=== PATIENT | female | born 1955 | race Caucasian/White ===

== ENCOUNTER 2018-03-09 10:36 | Day surgery (SDC) | payer OTHER ==
[2018-03-09 12:05] VITALS: BMI 28.3
--- NOTE | 2018-03-09 12:35 | PROC ---
Endoscopy Procedure Endoscopy procedure completed. Please see scanned procedure report.
[2018-03-09 13:26] VITALS: TEMP 97.5
[2018-03-09 14:53] VITALS: BP 153/73; PULSE 61
--- NOTE | 2018-03-10 14:24 | PATH ---
Surgical Pathology Report Patient Name: KRISTINA MURPHY [facility]. Rec. #: [id number] /Age/Gender: 1955 (Age: 62) / F Account: [id number] Location: U-ENDOSCOPY Taken: 03/09/2018 Received: 03/09/2018 Reported: 03/10/2018 Physicians: Suraj Morgan M.D. Specimen(s) Received A: BX DUODENUM SECOND PORTION B: BX ANTRUM AND BODY C: BX GE JUNCTION D: BX ASCENDING COLON POLYP Clinical History Reflux symptoms, screening colonoscopy Postoperative diagnosis: Reflux, colon polyp, diverticulosis, hemorrhoids Final Diagnosis A. DUODENUM, SECOND PORTION, BIOPSY: DUODENAL MUCOSA WITH NO DIAGNOSTIC ABNORMALITIES. B. ANTRUM AND BODY, BIOPSY: GASTRIC MUCOSA WITH NO DIAGNOSTIC ABNORMALITIES. IMMUNOSTAIN IS NEGATIVE FOR H. PYLORI ORGANISMS. C. GE JUNCTION, BIOPSY: GASTROESOPHAGEAL MUCOSA WITH CHRONIC INFLAMMATION AND FEATURES CONSISTENT WITH REFLUX ESOPHAGITIS. D. ASCENDING COLON POLYP, POLYPECTOMY: TUBULAR ADENOMA. Electronically Signed Natividad Eduardo M.D. Gross Description A. Received in formalin, labeled " biopsy duodenum second portion" are 2 ugalde, irregular portions of soft tissue measuring 0.2 and 0.6 cm. in greatest dimension. The specimens are submitted in toto in one cassette. B. Received in formalin, labeled " biopsy antrum and body" are 4 ugalde, irregular portions of soft tissue ranging from 0.2-0.4 cm. in greatest dimension. The specimens are submitted in toto in one cassette. C. Received in formalin, labeled " biopsy GE junction" are 3 ugalde, irregular portions of soft tissue ranging from 0.2-0.4 cm. in greatest dimension. The specimens are submitted in toto in one cassette. D. Received in formalin, labeled " polyp ascending" are 6 ugalde, irregular portions of soft tissue ranging from 0.1-0.4 cm. in greatest dimension. The specimens are submitted in toto in one cassette. 03/09/2018 [place]udi03/09/2018
== END 2018-03-09 14:35 | disposition home or self-care (01) ==
LOC: JASU-ENDO 10:36
PROVIDERS: ATTEND Internal Medicine Gastroenterology
PROC: 0DB68ZX Excision of Stomach, Via Natural or Artificial Opening Endoscopic, Diagnostic (ICD-10-PCS; 2018-03-09)
PROC: 0DB58ZX Excision of Esophagus, Via Natural or Artificial Opening Endoscopic, Diagnostic (ICD-10-PCS; 2018-03-09)
PROC: 0DBK8ZX Excision of Ascending Colon, Via Natural or Artificial Opening Endoscopic, Diagnostic (ICD-10-PCS; 2018-03-09)
PROC: 3E0H8GC Introduction of Other Therapeutic Substance into Lower GI, Via Natural or Artificial Opening Endoscopic (ICD-10-PCS; 2018-03-09)
PROC: 0DB98ZX Excision of Duodenum, Via Natural or Artificial Opening Endoscopic, Diagnostic (ICD-10-PCS; principal; 2018-03-09 12:00)
DX: Z12.11 Encounter for screening for malignant neoplasm of colon (principal); D12.2 Benign neoplasm of ascending colon; K21.0 Gastro-esophageal reflux disease with esophagitis; K57.30 Diverticulosis of large intestine without perforation or abscess without bleeding; K64.8 Other hemorrhoids
CPT/HCPCS: 88305-TC; 88342-TC

== ENCOUNTER → 2019-05-29 | Day surgery (SDC) | payer OTHER ==
--- NOTE | 2019-05-31 17:14 | PATH ---
Surgical Pathology Report Patient Name: KRISTINA MURPHY [facility]. Rec. #: [id number] /Age/Gender: 1955 (Age: 64) / F Account: [id number] Location: Taken: 05/29/2019 Received: 05/30/2019 Reported: 05/31/2019 Physicians: Nithya Jaramillo M.D. Specimen(s) Received RIGHT BREAST CORE BIOPSY Clinical History Nonpalpable lesion Ultrasound findings: Probably benign Final Diagnosis RIGHT BREAST MASS, 5:00, ULTRASOUND GUIDED CORE BIOPSY: BREAST TISSUE WITH FIBROADENOMA. Electronically Signed Natividad Eduardo M.D. Gross Description Received in formalin labeled "right breast," are 3 ugalde-yellow, cylindrical portions of fibroadipose tissue ranging from 0.2-0.7 cm in length and averaging 0.1 cm in diameter. The specimens are submitted in toto in one cassette. Time to formalin fixation: Less than one minute Total formalin fixation time: Approximately 29 hours. 05/30/2019 [facility]05/30/2019
== END | disposition home or self-care (01) ==
LOC: JMAMMO-SUR 12:02
PROVIDERS: ATTEND Family Medicine
PROC: 0HBT3ZX Excision of Right Breast, Percutaneous Approach, Diagnostic (ICD-10-PCS; principal; 2019-05-29)
DX: D24.1 Benign neoplasm of right breast (principal)
CPT/HCPCS: 19083; 87899; 88305-TC; A4648

== ENCOUNTER 2019-11-13 16:31 | Inpatient (IN) | payer OTHER ==
--- NOTE | 2019-11-13 16:47 | PDOC ---
Rapid Medical Evaluation Time Seen by Provider: 11/13/19 16:46 Medical Evaluation: Allergies Allergy/AdvReac Type Severity Reaction Status Date / Time No Known Allergies Allergy Verified 11/13/19 16:46 11/13/19 16:46 I performed a brief in-person evaluation of this patient. 64-year-old female with vomiting, dizziness, abdominal pain, high BP and BG recorded at home. Pertinent physical exam findings: Actively vomiting in triage. I have ordered the following: Labs including CBC, CMP, VBG, BHB, cardiac profile, UA Normal saline for hydration Zofran for nausea Patient to proceed to the ED for further evaluation. Discharge Disposition - Diagnosis Vomiting - Referrals - Patient Instructions - Post Discharge Activity
[2019-11-13] MEDS ORDERED: ONDANSETRON 4 MG/2 ML VIAL IVPUSH ONE (16:50)
[2019-11-13] MEDS ORDERED: SODIUM CHLORIDE 1,000 ML IV STA ×2 (16:50→18:58)
[2019-11-13] MEDS ORDERED: ONDANSETRON 4 MG/2 ML VIAL ONE (17:19)
--- NOTE | 2019-11-13 18:05 | PDOC ---
History of Present Illness - General Chief Complaint: Blood Pressure Problem Stated Complaint: VOMITTING/CHEST PAIN/HIGH B/P Time Seen by Provider: 11/13/19 16:46 History Source: Patient Exam Limitations: No Limitations - History of Present Illness Initial Comments: 11/13/19 18:18 64 yo F with a hx of HTN, DM, and vertigo (last time symptom onset 2 years ago; not on medication) presents to the emergency department with room spinning sensation, high blood pressure, vomiting, and elevated BG. Per the patient, her symptoms onset was sudden at approximately 3 pm while at rest with room spinning sensation to the right. She endorses having nausea and vomiting 2-3x without blood and bile since then. Per the patient, she states she had her BG at approximately 300 and her BP systolic shy of 200. Denies the following: fevers, headaches, visual disturbance, ears/nose/throat pain, chest pain, SOB, abdominal pain, dysuria, hematuria, diarrhea, hematochezia, melena, and leg pain /swelling. Allergies: NKDA Past History - Past Medical History Allergies/Adverse Reactions: Allergies Allergy/AdvReac Type Severity Reaction Status Date / Time No Known Allergies Allergy Verified 11/13/19 16:46 Home Medications: Ambulatory Orders Insulin (Novolog) [Novolog -] 10 units SQ DAILY 03/09/18 Insulin Glargine,Hum.rec.anlog [Lantus] 24 units SQ HS 03/09/18 Losartan Potassium 125 mg PO DAILY 03/09/18 Meclizine HCl 25 mg PO DAILY 03/09/18 Pantoprazole Sodium [Protonix] 40 mg PO DAILY #1 tablet. 03/09/18 metFORMIN HCL [Metformin ER Osmotic] 1,000 mg PO BID 03/09/18 COPD: No Diabetes: Yes (IDDM) HTN: Yes - Surgical History Abdominal Surgery: (TUBAL LIGATION) - Psycho Social/Smoking Cessation Hx Smoking Status: No Smoking History: Never smoked Number of Cigarettes Smoked Daily: 0 Hx Alcohol Use: No Drug/Substance Use Hx: No Substance Use Type: None Hx Substance Use Treatment: No Review of Systems - Review of Systems Able to Perform ROS?: Yes Is the patient limited Thai proficient: No Constitutional: No: Chills, Diaphoresis, Fever, Weakness HEENTM: No: Eye Pain, Ear Pain, Nose Pain, Throat Pain, Mouth Pain Respiratory: No: Cough, Shortness of Breath, Hemoptysis Cardiac (ROS): No: Chest Pain, Lightheadedness, Palpitations ABD/GI: Yes: Nausea, Vomiting. No: Constipated, Diarrhea, Rectal Bleeding, Tarry Stools : No: Burning, Dysuria, Hematuria, Incontinence Musculoskeletal: No: Back Pain, Neck Pain Integumentary: No: Bruising, Flushing, Rash Neurological: Yes: Dizziness. No: Headache, Numbness, Tingling, Tremors Psychiatric: No: Change in Appetite Endocrine: No: Unexplained Weight Gain Hematologic/Lymphatic: No: Anemia *Physical Exam - Vital Signs Last Vital Signs Temp Pulse Resp BP Pulse Ox 97.9 F 92 H 18 177/84 H 100 11/13/19 16:46 11/13/19 16:46 11/13/19 16:46 11/13/19 16:46 11/13/19 16:46 - Physical Exam General Appearance: Yes: Nourished, Appropriately Dressed. No: Apparent Distress, Intoxicated, Obese HEENT: positive: EOMI, SERG, Normal ENT Inspection, Normal Voice, Symmetrical, TMs Normal, Pharynx Normal, Hearing Grossly Normal. negative: Pale Conjunctivae , Scleral Icterus (R), Scleral Icterus (L), Muffled/Hoarse voice, Pharyngeal Erythema, Tonsillar Exudate, Tonsillar Erythema, Rhinorrhea, Sinus Tenderness, Excessive drooling Neck: positive: Trachea midline, Supple. negative: Tender, Lymphadenopathy (R) , Lymphadenopathy (L), Tender lateral, Tender midline Respiratory/Chest: positive: Lungs Clear, Normal Breath Sounds. negative: Chest Tender, Respiratory Distress, Accessory Muscle Use, Rales, Rhonchi, Stridor Cardiovascular: positive: Regular Rhythm, Regular Rate, S1, S2. negative: Systolic Murmur Gastrointestinal/Abdominal: positive: Normal Bowel Sounds, Flat, Soft. negative : Tender, Distended, Guarding, Rebound Lymphatic: negative: Adenopathy Musculoskeletal: positive: Normal Inspection. negative: CVA Tenderness, Vertebral Tenderness Extremity: positive: Normal Capillary Refill, Normal Inspection, Normal Range of Motion. negative: Tender, Swelling, Calf Tenderness, Erythema Integumentary: positive: Normal Color, Dry, Warm. negative: Petechiae, Rash, Swelling, Ecchymosis Neurologic: positive: orthopedic surgeon II-XII NML intact, Fully Oriented, Alert, Normal Mood/ Affect, Motor Strength 5/5. negative: EOM Palsy ED Treatment Course - LABORATORY CBC & Chemistry Diagram: 11/13/19 17:28 11/13/19 17:28 - ADDITIONAL ORDERS Additional order review: Laboratory Results 11/13/19 17:40 POC Glucometer 230 11/13/19 17:40 POC Glucometer 230 - Medications Given in the ED: ED Medications Discontinued Medications Generic Name Dose Route Start Last Admin Trade Name Jim PRN Reason Stop Dose Admin Sodium Chloride 1,000 mls @ 1,000 mls/hr 11/13/19 16:50 11/13/19 17:37 Normal Saline - IV 11/13/19 17:49 1,000 mls/hr ASDIR STA Administration Ondansetron HCl 4 mg 11/13/19 16:50 11/13/19 17:37 Zofran Injection IVPUSH 11/13/19 16:51 4 mg ONCE ONE Administration Medical Decision Making - Medical Decision Making 11/13/19 18:54 64 yo F with a hx of HTN, DM, and vertigo (last time symptom onset 2 years ago; not on medication) presents to the emergency department with room spinning sensation, high blood pressure, vomiting, and elevated BG. Initial vitals: Initial Vital Signs Temp Pulse Resp BP Pulse Ox 97.9 F 92 H 18 177/84 H 100 11/13/19 16:46 11/13/19 16:46 11/13/19 16:46 11/13/19 16:46 11/13/19 16:46 Work up: patient presents to the emergency department with room spinning sensation Negative HINTS exam. positive trey halpike to the right on physical examination patient likely is having peripheral positional benign vertigo - will treat with meclizine and reassess Laboratory Tests 11/13/19 11/13/19 11/13/19 17:28 17:28 17:28 WBC 8.9 RBC 4.64 Hgb 12.4 Hct 38.2 MCV 82.2 MCH 26.8 MCHC 32.5 RDW 14.1 Plt Count 349 D MPV 8.4 Absolute Neuts (auto) 5.8 Neutrophils % 65.4 D Lymphocytes % 25.9 D Monocytes % 6.9 Eosinophils % 1.3 D Basophils % 0.5 Nucleated RBC % 0 VBG pH 7.39 POC VBG pCO2 53.1 H POC VBG pO2 < 49 H VBG HCO3 32.0 H VBG O2 Sat (Camila) 54.2 L VBG Base Excess 6.2 H Sodium 135 L Potassium 4.1 Chloride 99 Carbon Dioxide 30 Anion Gap 7 L BUN 15.7 Creatinine 0.7 Est GFR (CKD-EPI)AfAm 106.12 Est GFR (CKD-EPI)NonAf 91.56 POC Glucometer Random Glucose 227 H Calcium 10.0 Total Bilirubin 0.3 AST 18 ALT 35 Alkaline Phosphatase 81 Creatine Kinase Troponin I Total Protein 7.6 Albumin 3.9 Beta-Hydroxybutyrate 1.3 Urine Color Urine Appearance Urine pH Ur Specific [place] Urine Protein Urine Glucose (UA) Urine Ketones Urine Blood Urine Nitrite Urine Bilirubin Urine Urobilinogen Ur Leukocyte Esterase Urine WBC (Auto) Urine RBC (Auto) Urine Casts (Auto) U Epithel Cells (Auto) Urine Bacteria (Auto) 11/13/19 11/13/19 11/13/19 17:28 17:40 18:35 WBC RBC Hgb Hct MCV MCH MCHC RDW Plt Count MPV Absolute Neuts (auto) Neutrophils % Lymphocytes % Monocytes % Eosinophils % Basophils % Nucleated RBC % VBG pH POC VBG pCO2 POC VBG pO2 VBG HCO3 VBG O2 Sat (Camila) VBG Base Excess Sodium Potassium Chloride Carbon Dioxide Anion Gap BUN Creatinine Est GFR (CKD-EPI)AfAm Est GFR (CKD-EPI)NonAf POC Glucometer 230 Random Glucose Calcium Total Bilirubin AST ALT Alkaline Phosphatase Creatine Kinase 30 Troponin I < 0.02 Total Protein Albumin Beta-Hydroxybutyrate Urine Color Yellow Urine Appearance Clear Urine pH 7.0 D Ur Specific [place] 1.023 Urine Protein 2+ H Urine Glucose (UA) 2+ H Urine Ketones Negative Urine Blood Negative Urine Nitrite Positive H Urine Bilirubin Negative Urine Urobilinogen 0.2 Ur Leukocyte Esterase Negative Urine WBC (Auto) 10.4 Urine RBC (Auto) 2 Urine Casts (Auto) 5 U Epithel Cells (Auto) 2.3 Urine Bacteria (Auto) 1045.0 patient was found to have UTI and treated with abx. Will sign out patient to Dr. Arita for further work up and management. 11/13/19 23:35 Discharge - Discharge Information Problems reviewed: Yes Clinical Impression/Diagnosis: Dizziness Vomiting Qualifiers: Vomiting type: unspecified Vomiting Intractability: non-intractable Nausea presence: with nausea Qualified Code(s): R11.2 - Nausea with vomiting, unspecified Condition: Stable - Follow up/Referral - Patient Discharge Instructions - Post Discharge Activity
[2019-11-13] MEDS ORDERED: MECLIZINE HCL 25 MG TABLET (FP) PO ONE ×2 (18:15→18:59)
--- NOTE | 2019-11-13 18:17 | PDOC ---
Attending Attestation - Resident Resident Name: Miguel Red - ED Attending Attestation I have performed the following: I have examined & evaluated the patient, The case was reviewed & discussed with the resident, I agree w/resident's findings & plan, Exceptions are as noted - HPI HPI: 64 yo F history HTN, DM, vertigo presents with dizziness, sensation of room spinning, vomiting. She has had similar symptoms in the past, responded to meclizine. No recent URI, ear infections, fever, headache. Denies weakness, numbness. Symptoms are worse with side to side movements of her head. - Physicial Exam PE: GENERAL: Awake, alert, and fully oriented, in no acute distress. Covering eyes secondary to symptoms HEAD: No signs of trauma EYES: PERRLA, EOMI, sclera anicteric, conjunctiva clear ENT: Auricles normal inspection, hearing grossly normal, nares patent, oropharynx clear without exudates. Dry mucosa NECK: Normal ROM, supple, no lymphadenopathy, JVD, or masses LUNGS: Breath sounds equal, clear to auscultation bilaterally. No wheezes, and no crackles HEART: Regular rate and rhythm, normal S1 and S2, no murmurs, rubs or gallops ABDOMEN: Soft, nontender, normoactive bowel sounds. No guarding, no rebound. No masses EXTREMITIES: Normal range of motion, no edema. No clubbing or cyanosis. No cords, erythema, or tenderness NEUROLOGICAL: Cranial nerves II through XII grossly intact. Normal speech. Motor and sensation intact. Gait not tested due to severe dizziness SKIN: Warm, dry, normal turgor, no rashes or lesions noted. - Medical Decision Making Pt with prior history of vertigo, now presents with vertiginous symptoms. Given zofran for vomiting. Will give meclizine, and if this fails, consider valium. Will DC home if she improves.
[2019-11-13] MEDS ORDERED: MECLIZINE HCL 25 MG TABLET (FP) ONE ×2 (18:25→19:51)
[2019-11-13 18:42] LABS: BASO % 0.5 % (0-2.0); EOS % 1.3 % (0-4.5); HEMATOCRIT 38.2 % (32.4-45.2); HEMOGLOBIN 12.4 GM/dL (10.7-15.3); LYMPH % 25.9 % (8-40); MCH 26.8 pg (25.7-33.7); MCHC 32.5 g/dl (32.0-36.0); MEAN CELL VOLUME 82.2 fl (80-96); MEAN PLT VOLUME 8.4 fl (7.5-11.1); MONO % 6.9 % (3.8-10.2); NEUT % 65.4 % (42.8-82.8); PLATELET COUNT 349 K/MM3 (134-434); RBC 4.64 M/mm3 (3.60-5.2); RDW 14.1 % (11.6-15.6); WHITE BLOOD COUNT 8.9 K/mm3 (4.0-10.0)
[2019-11-13 18:47] LABS: EPI CELLS 2.3 /HPF (0-5/HPF); HYALINE CASTS 5 /lpf (0-8); URINE APPEARANCE CLEAR; URINE BILIRUBIN NEGATIVE (NEGATIVE); URINE COLOR YELLOW; URINE GLUCOSE (UA) 2+ (NEGATIVE); URINE KETONE NEGATIVE (NEGATIVE); URINE LEUK ESTERASE NEGATIVE (NEGATIVE); URINE NITRITE POSITIVE (NEGATIVE); URINE PROTEIN 2+ (NEGATIVE); URINE RBC 2 /hpf (0-4); URINE UROBILINOGEN 0.2 mg/dL (0.2-1.0)
[2019-11-13 18:49] LABS: VENOUS PC02 53.1 mmHg (38-52); VENOUS PH 7.39 (7.31-7.41)
[2019-11-13 18:50] LABS: VENOUS PO2 < 49 mmHg (28-48)
[2019-11-13] MEDS ORDERED: CEPHALEXIN MONOHYDRATE 500 MG CAPSULE (UD) PO ONE (18:58)
[2019-11-13 19:11] LABS: ALBUMIN 3.9 g/dl (3.4-5.0); BILIRUBIN,TOTAL 0.3 mg/dL (0.2-1); BLOOD UREA NITROGEN 15.7 mg/dL (7-18); CREATININE 0.7 mg/dL (0.55-1.3); POTASSIUM 4.1 mmol/L (3.5-5.1); TOT PROT 7.6 g/dl (6.4-8.2)
--- NOTE | 2019-11-13 19:31 | PDOC ---
*Physical Exam - Vital Signs Last Vital Signs Temp Pulse Resp BP Pulse Ox 97.9 F 92 H 18 177/84 H 100 11/13/19 16:46 11/13/19 16:46 11/13/19 16:46 11/13/19 16:46 11/13/19 16:46 - Physical Exam MDM: Received sign out from resident Dr. Red. In short, pt is a 62 y/o female presenting with a sensation of room spinning. H/o of peripheral vertigo. Horizontal nystagmus and a positive Abdullahi Hallpike were noted on exam. Given a dose of Meclizine without improvement. Received a second dose just prior to sign out. Will follow up on symptoms. Also UA concerning for acute cystitis. Keflex ordered. Dispo pending. 13 Nov 2019 20:56 PM Pt reassessed. Reports feeling a little better but objectives in the room continue to move. Transitioned from supine to sitting position and symptoms acutely worsened. Will admit for persistent vertiginous symptoms. Unable to ambulate. 13 Nov 2019 22:19 PM Telephone discussion with NASRIN Blank. Verbally appraised of the pts HPI, ED course, and current plan of management. Will admit pt to med /surg for attending Dr. Bauman. CTH pending. ED Treatment Course - LABORATORY CBC & Chemistry Diagram: 11/13/19 17:28 11/13/19 17:28 - ADDITIONAL ORDERS Additional order review: Laboratory Results 11/13/19 11/13/19 11/13/19 18:35 17:40 17:28 VBG pH POC VBG pCO2 POC VBG pO2 VBG HCO3 VBG O2 Sat (Camila) VBG Base Excess Sodium Potassium Chloride Carbon Dioxide Anion Gap BUN Creatinine Est GFR (CKD-EPI)AfAm Est GFR (CKD-EPI)NonAf POC Glucometer 230 Random Glucose Calcium Total Bilirubin AST ALT Alkaline Phosphatase Creatine Kinase 30 Troponin I < 0.02 Total Protein Albumin Beta-Hydroxybutyrate Urine Color Yellow Urine Appearance Clear Urine pH 7.0 D Ur Specific [place] 1.023 Urine Protein 2+ H Urine Glucose (UA) 2+ H Urine Ketones Negative Urine Blood Negative Urine Nitrite Positive H Urine Bilirubin Negative Urine Urobilinogen 0.2 Ur Leukocyte Esterase Negative Urine RBC (Auto) 2 Urine Casts (Auto) 5 U Epithel Cells (Auto) 2.3 Urine Bacteria (Auto) 1045.0 11/13/19 11/13/19 17:28 17:28 VBG pH 7.39 POC VBG pCO2 53.1 H POC VBG pO2 < 49 H VBG HCO3 32.0 H VBG O2 Sat (Camila) 54.2 L VBG Base Excess 6.2 H Sodium 135 L Potassium 4.1 Chloride 99 Carbon Dioxide 30 Anion Gap 7 L BUN 15.7 Creatinine 0.7 Est GFR (CKD-EPI)AfAm 106.12 Est GFR (CKD-EPI)NonAf 91.56 POC Glucometer Random Glucose 227 H Calcium 10.0 Total Bilirubin 0.3 AST 18 ALT 35 Alkaline Phosphatase 81 Creatine Kinase Troponin I Total Protein 7.6 Albumin 3.9 Beta-Hydroxybutyrate 1.3 Urine Color Urine Appearance Urine pH Ur Specific [place] Urine Protein Urine Glucose (UA) Urine Ketones Urine Blood Urine Nitrite Urine Bilirubin Urine Urobilinogen Ur Leukocyte Esterase Urine RBC (Auto) Urine Casts (Auto) U Epithel Cells (Auto) Urine Bacteria (Auto) 11/13/19 11/13/19 17:40 17:28 RBC 4.64 MCV 82.2 MCHC 32.5 RDW 14.1 MPV 8.4 Neutrophils % 65.4 D Lymphocytes % 25.9 D Monocytes % 6.9 Eosinophils % 1.3 D Basophils % 0.5 POC Glucometer 230 - Medications Given in the ED: ED Medications Discontinued Medications Generic Name Dose Route Start Last Admin Trade Name Freq PRN Reason Stop Dose Admin Sodium Chloride 1,000 mls @ 1,000 mls/hr 11/13/19 16:50 11/13/19 17:37 Normal Saline - IV 11/13/19 17:49 1,000 mls/hr ASDIR STA Administration Meclizine HCl 25 mg 11/13/19 18:15 11/13/19 18:26 Antivert - PO 11/13/19 18:16 25 mg ONCE ONE Administration Ondansetron HCl 4 mg 11/13/19 16:50 11/13/19 17:37 Zofran Injection IVPUSH 11/13/19 16:51 4 mg ONCE ONE Administration Discharge - Discharge Information Problems reviewed: Yes Clinical Impression/Diagnosis: Dizziness Vomiting Qualifiers: Vomiting type: unspecified Vomiting Intractability: non-intractable Nausea presence: with nausea Qualified Code(s): R11.2 - Nausea with vomiting, unspecified Condition: Stable - Admission Yes - Follow up/Referral Referrals: Senait Bowie MD [Primary Care Provider] - - Patient Discharge Instructions - Post Discharge Activity
[2019-11-13] MEDS ORDERED: CEPHALEXIN MONOHYDRATE 500 MG CAPSULE (UD) ONE (19:51)
[2019-11-13 22:04] LABS: URINE WBC 10.4 /hpf (0-5)
--- NOTE | 2019-11-13 23:12 | HP ---
Admitting History and Physical - Primary Care Physician PCP: Senait Bowie - Admission Chief Complaint: Dizziness, Elevated blood pressure, elevated glucose readings, vomiting History of Present Illness: This is a 64 y/o woman with a PMHx of HTN, DM, Vertigo (last time symptom onset 2 years ago; not on medication). Who presents to the ED with dizziness, vomiting , elevated BP and BGM. patient is kosovan speaking, her daughter translated at bedside. Patient reports that her symptoms started in the afternoon yesterday, while at rest with room spinning sensation to the right. She reports NBNB vomiting and nausea. Patient reports that her glucose was approximately 300 and her BP systolic was 200. Patient denies fever, headaches, visual disturbance, chest pain, SOB, abdominal pain, dysuria, hematuria, diarrhea, hematochezia, melena, and leg pain/swelling. History Source: Patient, Family Member Limitations to Obtaining History: Language Barrier (Syriac) - Past Medical History HATCH [employer]PER[employer]OR: Yes: Vertigo Cardiovascular: Yes: HTN Endocrine: Yes: Diabetes Mellitus - Smoking History Smoking history: Never smoked Aproximately how many cigarettes per day: 0 - Alcohol/Substance Use Hx Alcohol Use: No - Social History Usual Living Arrangement: Yes: With Child ADL: Independent History of Recent Travel: No Home Medications - Allergies Allergies/Adverse Reactions: Allergies Allergy/AdvReac Type Severity Reaction Status Date / Time No Known Allergies Allergy Verified 11/13/19 16:46 - Home Medications Home Medications: Ambulatory Orders Insulin (Novolog) [Novolog -] 10 units SQ DAILY 03/09/18 Insulin Glargine,Hum.rec.anlog [Lantus] 24 units SQ HS 03/09/18 Losartan Potassium 125 mg PO DAILY 03/09/18 Meclizine HCl 25 mg PO DAILY 03/09/18 Pantoprazole Sodium [Protonix] 40 mg PO DAILY #1 tablet. 03/09/18 metFORMIN HCL [Metformin ER Osmotic] 1,000 mg PO BID 03/09/18 Family Medical History Family History: Unable to Obtain Review of Systems - Review of Systems Constitutional: reports: Malaise Eyes: reports: No Symptoms HENT: reports: No Symptoms Neck: reports: No Symptoms Cardiovascular: reports: No Symptoms Respiratory: reports: No Symptoms Gastrointestinal: reports: Nausea, Vomiting Genitourinary: reports: No Symptoms Breasts: reports: No Symptoms Reported Musculoskeletal: reports: No Symptoms Integumentary: reports: No Symptoms Neurological: reports: Dizziness Endocrine: reports: No Symptoms Hematology/Lymphatic: reports: No Symptoms Psychiatric: reports: No Symptoms Pain Intensity: 0 Physical Examination Vital Signs: Vital Signs Temperature 97.9 F 11/13/19 16:46 Pulse Rate 92 H 11/13/19 16:46 Respiratory Rate 18 11/13/19 16:46 Blood Pressure 177/84 H 11/13/19 16:46 O2 Sat by Pulse Oximetry (%) 100 11/13/19 16:46 Constitutional: Yes: Well Nourished, No Distress, Calm Eyes: Yes: Conjunctiva Clear, PERRL HENT: Yes: Atraumatic, Normocephalic, Other (dry mucous membranes) Neck: Yes: WNL, Supple, Trachea Midline Cardiovascular: Yes: WNL, Regular Rate and Rhythm, S1, S2 Respiratory: Yes: WNL, Regular, CTA Bilaterally Gastrointestinal: Yes: WNL, Normal Bowel Sounds, Soft ...Rectal Exam: Yes: Deferred Renal/: Yes: WNL Breast(s): Yes: WNL Musculoskeletal: Yes: WNL Extremities: Yes: WNL Edema: No Peripheral Pulses WNL: Yes Neurological: Yes: WNL, Alert, Oriented, Cran Nerves II-XII Intact ...Motor Strength: WNL Psychiatric: Yes: WNL, Alert, Oriented Labs: CBC, BMP 11/13/19 17:28 11/13/19 17:28 Laboratory Results - last 24 hr 11/13/19 11/13/19 11/13/19 17:28 17:28 17:28 WBC 8.9 RBC 4.64 Hgb 12.4 Hct 38.2 MCV 82.2 MCH 26.8 MCHC 32.5 RDW 14.1 Plt Count 349 D MPV 8.4 Absolute Neuts (auto) 5.8 Neutrophils % 65.4 D Lymphocytes % 25.9 D Monocytes % 6.9 Eosinophils % 1.3 D Basophils % 0.5 Nucleated RBC % 0 VBG pH 7.39 POC VBG pCO2 53.1 H POC VBG pO2 < 49 H VBG HCO3 32.0 H VBG O2 Sat (Camila) 54.2 L VBG Base Excess 6.2 H Sodium 135 L Potassium 4.1 Chloride 99 Carbon Dioxide 30 Anion Gap 7 L BUN 15.7 Creatinine 0.7 Est GFR (CKD-EPI)AfAm 106.12 Est GFR (CKD-EPI)NonAf 91.56 POC Glucometer Random Glucose 227 H Calcium 10.0 Total Bilirubin 0.3 AST 18 ALT 35 Alkaline Phosphatase 81 Creatine Kinase Troponin I Total Protein 7.6 Albumin 3.9 Beta-Hydroxybutyrate 1.3 Urine Color Urine Appearance Urine pH Ur Specific [place] Urine Protein Urine Glucose (UA) Urine Ketones Urine Blood Urine Nitrite Urine Bilirubin Urine Urobilinogen Ur Leukocyte Esterase Urine WBC (Auto) Urine RBC (Auto) Urine Casts (Auto) U Epithel Cells (Auto) Urine Bacteria (Auto) 11/13/19 11/13/19 11/13/19 17:28 17:40 18:35 WBC RBC Hgb Hct MCV MCH MCHC RDW Plt Count MPV Absolute Neuts (auto) Neutrophils % Lymphocytes % Monocytes % Eosinophils % Basophils % Nucleated RBC % VBG pH POC VBG pCO2 POC VBG pO2 VBG HCO3 VBG O2 Sat (Camila) VBG Base Excess Sodium Potassium Chloride Carbon Dioxide Anion Gap BUN Creatinine Est GFR (CKD-EPI)AfAm Est GFR (CKD-EPI)NonAf POC Glucometer 230 Random Glucose Calcium Total Bilirubin AST ALT Alkaline Phosphatase Creatine Kinase 30 Troponin I < 0.02 Total Protein Albumin Beta-Hydroxybutyrate Urine Color Yellow Urine Appearance Clear Urine pH 7.0 D Ur Specific [place] 1.023 Urine Protein 2+ H Urine Glucose (UA) 2+ H Urine Ketones Negative Urine Blood Negative Urine Nitrite Positive H Urine Bilirubin Negative Urine Urobilinogen 0.2 Ur Leukocyte Esterase Negative Urine WBC (Auto) 10.4 Urine RBC (Auto) 2 Urine Casts (Auto) 5 U Epithel Cells (Auto) 2.3 Urine Bacteria (Auto) 1045.0 Intake & Output 11/11/19 11/12/19 11/13/19 11/14/19 23:59 23:59 23:59 23:59 Weight 70.307 kg Current Medications Generic Name Dose Route Start Last Admin Trade Name Freq PRN Reason Stop Dose Admin Sodium Chloride 1,000 mls @ 42 mls/hr 11/13/19 23:15 11/14/19 00:14 Normal Saline - IV 42 mls/hr ASDIR IVETH Administration Ceftriaxone Sodium 1 gm/ 50 mls @ 200 mls/hr 11/14/19 10:00 Dextrose IVPB DAILY IVETH Protocol Insulin Aspart 0 vial 11/14/19 07:00 Novolog Vial Sliding Scale - SQ ACHS IVETH Protocol Meclizine HCl 25 mg 11/14/19 02:00 Antivert - PO Q6H PRN VERTIGO Non-Formulary Medication 125 mg 11/14/19 10:00 Losartan Potassium [Losartan Potassium] PO DAILY IVETH Pantoprazole Sodium 40 mg 11/14/19 10:00 Protonix - PO DAILY IVETH Imaging - Results Chest X-ray: Image Reviewed Cat Scan: Report Reviewed, Image Reviewed EKG: Image Reviewed Problem List - Problems (1) Vertigo Code(s): R42 - DIZZINESS AND GIDDINESS (2) Dizziness Code(s): R42 - DIZZINESS AND GIDDINESS (3) HTN (hypertension) Code(s): I10 - ESSENTIAL (PRIMARY) HYPERTENSION (4) HLD (hyperlipidemia) Code(s): E78.5 - HYPERLIPIDEMIA, UNSPECIFIED Assessment/Plan This is a 64 y/o woman admitted for Vertigo for further evaluation of their emergent condition. Plan: Neurology consult Neurochecks Head CT- neg ICH, mild chronic sinusitis Orthostatics Meclizine given in ED, continue Gentle IVF Monitor CBC, BMP Monitor vitals Fall Precautions FEN- Po fluids as tolerated, replete lytes prn, Low Na Diet DVT ppx- OOB, SCDs, Heparin SQ Dispo: Requires Inpatient Care Visit type - Emergency Visit Emergency Visit: Yes ED Registration Date: 11/13/19 Care time: The patient presented to the Emergency Department on the above date and was hospitalized for further evaluation of their emergent condition. - New Patient This patient is new to me today: Yes Date on this admission: 11/13/19 - Critical Care Critical Care patient: No
[2019-11-14] MEDS: SODIUM CHLORIDE 1,000 ML IV SCH ×3 (00:14→23:45)
[2019-11-14] MEDS ORDERED: MECLIZINE HCL 25 MG TABLET (FP) PO PRN (02:00)
[2019-11-14 07:07] LABS: BASO % 0.4 % (0-2.0); EOS % 1.8 % (0-4.5); HEMATOCRIT 31.6 % (32.4-45.2); HEMOGLOBIN 10.6 GM/dL (10.7-15.3); LYMPH % 38.2 % (8-40); MCH 27.3 pg (25.7-33.7); MCHC 33.5 g/dl (32.0-36.0); MEAN CELL VOLUME 81.6 fl (80-96); MONO % 7.3 % (3.8-10.2); NEUT % 52.3 % (42.8-82.8); PLATELET COUNT 292 K/MM3 (134-434); RBC 3.88 M/mm3 (3.60-5.2); RDW 14.2 % (11.6-15.6); WHITE BLOOD COUNT 9.2 K/mm3 (4.0-10.0)
[2019-11-14 07:32] LABS: BLOOD UREA NITROGEN 9.2 mg/dL (7-18); CALCIUM 8.5 mg/dL (8.5-10.1); CREATININE 0.6 mg/dL (0.55-1.3); POTASSIUM 3.9 mmol/L (3.5-5.1)
[2019-11-14] MEDS: INSULIN SLIDING SCALE (NOVOLOG) 1 VIAL SQ SCH ×4 (08:45→21:33)
[2019-11-14] MEDS: CEFTRIAXONE 1 GM in DEXTROSE 5%-WATER - 50 ML IVPB SCH (09:13)
[2019-11-14] MEDS: PANTOPRAZOLE 40 MG TABLET PO SCH (09:13)
[2019-11-14] MEDS: LOSARTAN POTASSIUM PO SCH (09:13)
[2019-11-14] MEDS ORDERED: LOSARTAN POTASSIUM PO SCH (10:00)
--- NOTE | 2019-11-14 11:29 | EKG ---
Test Reason : Blood Pressure : / mmHG Vent. Rate : 076 BPM Atrial Rate : 076 BPM P-R Int : 154 ms QRS Dur : 080 ms QT Int : 364 ms P-R-T Axes : 051 -10 045 degrees QTc Int : 409 ms NORMAL SINUS RHYTHM MINIMAL VOLTAGE CRITERIA FOR LVH, MAY BE NORMAL VARIANT BORDERLINE ECG WHEN COMPARED WITH ECG OF 15-APR-2012 18:33, NONSPECIFIC T WAVE ABNORMALITY NO LONGER EVIDENT IN LATERAL LEADS Confirmed by Jake Gunn MD ([id number]) on 11/14/2019 11:29:16 AM Referred By: Confirmed By:Jake Gunn MD
[2019-11-14 12:27] VITALS: BMI 28.7
--- NOTE | 2019-11-14 13:41 | PN ---
Progress Note, Physician Chief Complaint: Vertigo Nausea History of Present Illness: Previous notes and events reviewed awake and alert NAD sts dizziness has improved complain of nausea but denies further episodes of vomiting denies chest pain or SOB - Current Medication List Current Medications: Active Medications Sodium Chloride (Normal Saline -) 1,000 mls @ 42 mls/hr IV ASDIR [facility] Last Admin: 11/14/19 00:14 Dose: 42 mls/hr Ceftriaxone Sodium 1 gm/ (Dextrose) 50 mls @ 100 mls/hr IVPB DAILY [facility]; Protocol Last Admin: 11/14/19 09:13 Dose: 100 mls/hr Insulin Aspart (Novolog Vial Sliding Scale -) 1 vial SQ ACHS [facility]; Protocol Last Admin: 11/14/19 11:34 Dose: Not Given Losartan Potassium 100 mg/ (Losartan Potassium 25 mg) 125 mg PO DAILY [facility] Last Admin: 11/14/19 09:13 Dose: 125 mg Meclizine HCl (Antivert -) 25 mg PO Q6H PRN PRN Reason: VERTIGO Pantoprazole Sodium (Protonix -) 40 mg PO DAILY [facility] Last Admin: 11/14/19 09:13 Dose: 40 mg - Objective Vital Signs: Vital Signs Temperature 98.7 F 11/14/19 12:13 Pulse Rate 63 11/14/19 12:13 Respiratory Rate 20 11/14/19 12:13 Blood Pressure 145/74 11/14/19 12:13 O2 Sat by Pulse Oximetry (%) 97 11/14/19 12:13 Constitutional: Yes: No Distress, Calm Eyes: Yes: Conjunctiva Clear HENT: Yes: Atraumatic Cardiovascular: Yes: Regular Rate and Rhythm Respiratory: Yes: Regular, CTA Bilaterally Gastrointestinal: Yes: Normal Bowel Sounds, Soft Musculoskeletal: Yes: WNL Extremities: Yes: WNL Edema: No Neurological: Yes: Alert, Oriented Psychiatric: Yes: Alert, Oriented Labs: CBC, BMP 11/14/19 05:50 11/14/19 05:50 Problem List - Problems (1) Dizziness Assessment/Plan: -Meclizine -Fall Precaution -Neurology consult -Head CT scan shows mild volume loss without CT evidence of acute intracranial pathology, mild ethmoid chronic sinusitis -neuro checks q4h Code(s): R42 - DIZZINESS AND GIDDINESS (2) HTN (hypertension) Assessment/Plan: -Losartan -low Na diet Code(s): I10 - ESSENTIAL (PRIMARY) HYPERTENSION (3) UTI (urinary tract infection) Assessment/Plan: -UA shows positive nitrite, 2+ glucose, 2+ protein -Ceftriaxone -no leukocytosis -afebrile Code(s): N39.0 - URINARY TRACT INFECTION, SITE NOT SPECIFIED (4) Vomiting Assessment/Plan: -Pantoprazole daily -zofran prn for vomiting Code(s): R11.10 - VOMITING, UNSPECIFIED Qualifiers: Vomiting type: unspecified Vomiting Intractability: non-intractable Nausea presence: with nausea Qualified Code(s): R11.2 - Nausea with vomiting, unspecified (5) Diabetes Assessment/Plan: -BGM ACHS -ISS -diabetic diet Code(s): E11.9 - TYPE 2 DIABETES MELLITUS WITHOUT COMPLICATIONS Assessment/Plan see problem list dvt ppx
[2019-11-14] MEDS ORDERED: ONDANSETRON 4 MG TABLET PO PRN (20:24)
[2019-11-15] MEDS ORDERED: PT OWN MED DRAWER 7, Y5N ONE (05:59)
[2019-11-15] MEDS: INSULIN SLIDING SCALE (NOVOLOG) 1 VIAL SQ SCH ×2 (06:05→11:00)
[2019-11-15 07:46] LABS: HEMATOCRIT 37.4 % (32.4-45.2); HEMOGLOBIN 12.1 GM/dL (10.7-15.3); MCH 26.7 pg (25.7-33.7); MCHC 32.4 g/dl (32.0-36.0); MEAN CELL VOLUME 82.4 fl (80-96); MEAN PLT VOLUME 7.9 fl (7.5-11.1); PLATELET COUNT 340 K/MM3 (134-434); RBC 4.54 M/mm3 (3.60-5.2); RDW 14.3 % (11.6-15.6); WHITE BLOOD COUNT 8.4 K/mm3 (4.0-10.0)
[2019-11-15 08:17] LABS: ALBUMIN 3.5 g/dl (3.4-5.0); BILIRUBIN,TOTAL 0.5 mg/dL (0.2-1); BLOOD UREA NITROGEN 8.9 mg/dL (7-18); CALCIUM 9.2 mg/dL (8.5-10.1); CREATININE 0.6 mg/dL (0.55-1.3)
[2019-11-15] MEDS ORDERED: LOSARTAN POTASSIUM 50 MG TABLET (FP) ONE (09:06)
[2019-11-15] MEDS ORDERED: DEXTROSE 5%-WATER - 50 ML IVPB ONE (09:07)
[2019-11-15] MEDS ORDERED: cefTRIAXone SODIUM 1 GM VIAL ONE (09:07)
[2019-11-15] MEDS ORDERED: LOSARTAN POTASSIUM 25 MG TABLET ONE (09:07)
--- NOTE | 2019-11-15 09:56 | DS ---
Physical Examination Vital Signs: Vital Signs Temperature 98.1 F 11/15/19 05:00 Pulse Rate 68 11/15/19 05:00 Respiratory Rate 20 11/15/19 05:00 Blood Pressure 147/60 11/15/19 05:00 O2 Sat by Pulse Oximetry (%) 97 11/14/19 21:00 Findings/Remarks: FEELS BETTER DENIES DIZZINESS Constitutional: Yes: No Distress Cardiovascular: Yes: Regular Rate and Rhythm Respiratory: Yes: WNL Gastrointestinal: Yes: WNL Renal/: Yes: WNL Edema: No Peripheral Pulses WNL: Yes Neurological: Yes: WNL Labs: CBC, BMP 11/15/19 07:10 11/15/19 07:10 Discharge Summary Problems reviewed: Yes Reason For Visit: DIZZINESS,VOMITING Current Active Problems Diabetes (Acute) Dizziness (Acute) HLD (hyperlipidemia) (Acute) HTN (hypertension) (Acute) UTI (urinary tract infection) (Acute) Vertigo (Acute) Vomiting (Acute) Procedures: Principal: CT SCAN/CXR Hospital Course: ADMITTED WITH ACUTE VOMITING, DIZZINESS TREATED WITH IVF, IV ABX AND VERTIGO TX Plan of Treatment: MECLIZINE TAPER Condition: Stable - Instructions Diet, Activity, Other Instructions: ADA LOW SODIUM SEE DR BOWIE 2 WEEKS Referrals: Senait Bowie MD [Primary Care Provider] - Disposition: HOME - Home Medications Comprehensive Discharge Medication List: Ambulatory Orders Insulin (Novolog) [Novolog -] 10 units SQ DAILY 03/09/18 Insulin Glargine,Hum.rec.anlog [Lantus] 24 units SQ HS 03/09/18 Losartan Potassium 125 mg PO DAILY 03/09/18 Meclizine HCl 25 mg PO DAILY 03/09/18 Pantoprazole Sodium [Protonix] 40 mg PO DAILY #1 tablet. 03/09/18 metFORMIN HCL [Metformin ER Osmotic] 1,000 mg PO BID 03/09/18 Meclizine HCl [Antivert -] 25 mg PO Q6H PRN #45 tablet 11/15/19 Ondansetron [Zofran -] 4 mg PO Q8H PRN #30 tablet 11/15/19 Prescription Drug Monitoring Program (I-STOP) results: I-STOP not reviewed
[2019-11-15] MEDS: PANTOPRAZOLE 40 MG TABLET PO SCH (10:11)
[2019-11-15] MEDS: LOSARTAN POTASSIUM PO SCH (10:16)
[2019-11-15] MEDS: CEFTRIAXONE 1 GM in DEXTROSE 5%-WATER - 50 ML IVPB SCH (10:19)
[2019-11-15 10:27] VITALS: BP 139/71; PULSE 67; TEMP 98.3
--- NOTE | 2019-11-15 17:11 | PN ---
Progress Note (short form) - Note Progress Note: CC EPISODE OF DIZZINESS HPI 64 year old female saw yesterday for htn,dm, vertigo, pateint has similar symptoms before. Patient has her symptoms resolved. she described it as vertigo sensation. She was seen at bedside with her sister. Patient is feeling much better and almost back to [facility] as above Allergies/Adverse Reactions: Allergies Allergy/AdvReac Type Severity Reaction Status Date / Time No Known Allergies Allergy Verified 11/13/19 16:46 Home Medications: Insulin (Novolog) [Novolog -] 10 units SQ DAILY 03/09/18 Insulin Glargine,Hum.rec.anlog [Lantus] 24 units SQ HS 03/09/18 Losartan Potassium 125 mg PO DAILY 03/09/18 Meclizine HCl 25 mg PO DAILY 03/09/18 Pantoprazole Sodium [Protonix] 40 mg PO DAILY #1 tablet. 03/09/18 metFORMIN HCL [Metformin ER Osmotic] 1,000 mg PO BID 03/09/18 NEUROLOGICAL EXAMIANTION Alert oriented x 3, neck i ssupple vss eomi, pupils reactive no face asymmetry, no nystagmus moving all ext ct head unremarkable assessment/Plan BPPV symptoms resolved, no evidence of stroke , cord compression or cerebllar stroke Plan: patient can be discharged and follow up outpatient Thanking you so much David Cortez MD
== END 2019-11-15 11:07 | disposition home or self-care (01) | DRG 111 ==
LOC: JER 16:31 → JERBED 21:01 → J7W 11-14 10:45
PROVIDERS: ADMIT Internal Medicine; ATTEND Family Medicine
DX: R42 Dizziness and giddiness (principal); N39.0 Urinary tract infection, site not specified; E78.5 Hyperlipidemia, unspecified; E11.9 Type 2 diabetes mellitus without complications; I10 Essential (primary) hypertension; Z79.4 Long term (current) use of insulin; J32.2 Chronic ethmoidal sinusitis
CPT/HCPCS: 36415; 70450-TC; 71045-TC-FY; 80048; 80053; 81003; 82010; 82550; 82803; 82962; 84484; 85025; 85027; 93005; 93010; 99285-25; J7030

== ENCOUNTER 2022-11-18 10:05 | Emergency (ER) | payer MEDICARE, OTHER ==
[2022-11-18 10:20] VITALS: BP 182/55; PULSE 86; RESP 16; TEMP 97.7; BMI 29.2
== END 2022-11-18 12:38 | disposition home or self-care (01) ==
LOC: JERFT 10:05 → JER 10:05 → JERFT 12:38
DX: M79.671 Pain in right foot (principal)
CPT/HCPCS: 73630-TC-RT-FY; 99283-25

== ENCOUNTER 2025-07-26 09:49 | Emergency (ER) | payer OTHER ==
[2025-07-26 09:57] VITALS: RESP 16; BMI 26.5
[2025-07-26 11:12] LABS: ABSOLUTE IMMATURE GRANULOCYTES 0.01 x10^3/uL (0.0-0.031); BASOPHILS # 0.06 x10^3/uL (0.01-0.08); EOSINOPHIL % 2.5 % (0.7-5.8); EOSINOPHILS # 0.20 x10^3/uL (0.04-0.36); MCHC 30.3 g/dl (32.2-35.5); MEAN CELL VOLUME 78.3 fl (79.4-94.8); MEAN PLT VOLUME 9.5 fl (9.4-12.3); MONOCYTE # 0.63 x10^3/uL (0.24-0.86); MONOCYTE % 7.9 % (4.7-12.5); RDW 14.7 % (12.4-16.4)
[2025-07-26 12:03] LABS: GLUCOSE,RANDOM 178.0 mg/dL (74-106)
[2025-07-26 12:04] LABS: TOT PROT 7.7 g/dl (6.4-8.2)
[2025-07-26 12:05] LABS: CO2 25.0 mmol/L (21-32)
[2025-07-26 12:06] LABS: ALK PHOS 85.0 U/L (40-150)
[2025-07-26 12:09] LABS: CREATININE 0.66 mg/dL (0.55-1.3); SGOT/AST 19.0 U/L (5-34); SGPT/ALT 12.0 U/L (0-55)
[2025-07-26 12:33] LABS: HIV INTERPRETATION NEGATIVE (NEGATIVE)
[2025-07-26 12:34] LABS: HCV DIAGNOSTIC IN-HOUSE W/RFLX NON-REACTIVE (NONREACTIVE)
[2025-07-26 14:24] VITALS: BP 145/60; PULSE 67; TEMP 97.8
== END 2025-07-26 14:25 | disposition home or self-care (01) ==
LOC: JER 09:49
DX: N64.4 Mastodynia (principal); M54.9 Dorsalgia, unspecified; G89.29 Other chronic pain; I10 Essential (primary) hypertension
CPT/HCPCS: 36415; 71250-TC; 80053; 84484; 85025; 86803; 87389; 93005; 93010; 99285-25